=== PATIENT | male | born 1990 | race Caucasian/White ===

== ENCOUNTER 2024-03-21 20:00 | Outpatient (CLI) | payer BC, SELFPAY | END 2024-03-21 20:01 | disposition home or self-care (01) | LOC: SLEEP 03-22 05:19 | PROVIDERS: Visit Provider Family Medicine | DX: G47.33 Obstructive sleep apnea (adult) (pediatric) (principal); G47.19 Other hypersomnia | CPT/HCPCS: 95810 ==